=== PATIENT | female | born 1970 | race Two or more races ===

== ENCOUNTER 2017-05-26 12:29 | Outpatient (CLI) | payer OTHER ==
[~2017-05-26 12:29] MED LIST: DURICEF PO; KETO10TA2 PO; LEVSIN0.125 MG PO; TRAMADOL HCL-AP1 TAB PO
== END 2017-05-26 15:04 | disposition home or self-care (01) ==
LOC: MAMO-SONO 12:29
DX: C50.911 Malignant neoplasm of unspecified site of right female breast (principal); R10.2 Pelvic and perineal pain

== ENCOUNTER 2017-06-08 07:50 | Outpatient (CLI) | payer OTHER | END 2017-06-08 12:13 | disposition home or self-care (01) | LOC: MAMO-SONO 07:50 | DX: R92.0 Mammographic microcalcification found on diagnostic imaging of breast (principal) ==

== ENCOUNTER → 2018-06-16 | Outpatient (CLI) | payer OTHER | END | disposition home or self-care (01) | LOC: RAD 501 11:25 | DX: M25.562 Pain in left knee (principal) ==

== ENCOUNTER 2018-07-08 09:05 | Outpatient (CLI) | payer OTHER | END 2018-07-08 14:54 | disposition home or self-care (01) | LOC: LAB 09:05 | DX: E03.8 Other specified hypothyroidism (principal); Z13.0 Encounter for screening for diseases of the blood and blood-forming organs and certain disorders involving the immune mechanism; E78.00 Pure hypercholesterolemia, unspecified; B96.1 Klebsiella pneumoniae [K. pneumoniae] as the cause of diseases classified elsewhere; E55.9 Vitamin D deficiency, unspecified; N95.1 Menopausal and female climacteric states ==

== ENCOUNTER 2018-09-21 05:44 | Day surgery (SDC) | payer OTHER ==
[~2018-09-21 05:44] MED LIST changes: +KAPSPARGO SPRIN25 MG PO; +PROTONIX40 MG PO
[2018-09-21] MEDS ORDERED: ULTRACET PO (08:55)
[2018-09-21] MEDS ORDERED: NEURONTIN300 MG PO (08:55)
== END 2018-09-21 12:10 | disposition home or self-care (01) ==
LOC: CIR.AMB 05:44
DX: K80.10 Calculus of gallbladder with chronic cholecystitis without obstruction (principal)

== ENCOUNTER → 2018-10-26 | Emergency (ER) | payer OTHER ==
[~2018-10-26] VITALS: Ht 160 cm; Wt 79.4 kg
[~2018-10-26] MED LIST changes: +NEURONTIN300 MG PO; +ULTRACET PO
== END | disposition home or self-care (01) ==
LOC: ER 14:09
DX: L92.8 Other granulomatous disorders of the skin and subcutaneous tissue (principal)

== ENCOUNTER 2022-09-14 10:27 | Outpatient (CLI) | payer OTHER | END 2022-09-14 10:39 | disposition home or self-care (01) | LOC: SONOGRAMA 10:27 | DX: N18.1 Chronic kidney disease, stage 1 (principal); I12.9 Hypertensive chronic kidney disease with stage 1 through stage 4 chronic kidney disease, or unspecified chronic kidney disease ==